=== PATIENT | male | born 1955 | race Caucasian/White ===

== ENCOUNTER → 2016-06-25 | Outpatient (CLI) | payer MEDICAID ==
[~2016-06-25] MED LIST: ASA CHILDREN'S81 MG PO; BRILINTA90 MG PO; COQ-1030 MG PO; DAILY MULTIPLE1 EAC1 PO; LIPITOR DPS40 MG PO; OMEGA-3 DPS1000 MG PO; TOPROL XL DPS25 MG PO
== END | disposition home or self-care (01) ==
LOC: RAD.S 12:04
DX: N20.0 Calculus of kidney (principal)